=== PATIENT | male | born 1980 | race Caucasian/White ===

== ENCOUNTER 2021-07-26 05:45 | Day surgery (SDC) | payer BC, SELFPAY ==
[~2021-07-26] VITALS: Ht 175.3 cm; Wt 95.3 kg
[2021-07-26] MEDS ORDERED: SIMETHICONE 40 MG/0.6 ML ML ONE (07:25)
[2021-07-26] MEDS: MEPERIDINE 100 MG INJ. 100 MG/ML VIAL ONE ×2 (08:35→08:47)
[2021-07-26] MEDS: MIDAZOLAM HCL 5 MG/5 ML VIAL ONE ×4 (08:35→08:42)
[2021-07-26] MEDS ORDERED: MIDAZOLAM HCL 5 MG/5 ML VIAL ONE (08:47)
[2021-07-26 14:59] VITALS: BP_SYST 109
== END 2021-07-26 09:30 | disposition home or self-care (01) ==
LOC: SDS 05:45 → SMU 05:45 → SDS 09:30
PROVIDERS: ATTEND Internal Medicine Gastroenterology
DX: K92.1 Melena (principal); D12.5 Benign neoplasm of sigmoid colon; K64.8 Other hemorrhoids; Z79.899 Other long term (current) drug therapy; Z20.822 Contact with and (suspected) exposure to COVID-19
CPT/HCPCS: 36415; 45380; 45385; 87426; 88305; 99152; 99153; G0378; J2175; J2250; U0003